=== PATIENT | male | born 1970 | race Caucasian/White ===

== ENCOUNTER 2021-02-28 17:39 | Emergency (ER) | payer MEDICAID ==
[~2021-02-28] VITALS: Ht 165.1 cm; Wt 77.0 kg
[2021-02-28] MEDS ORDERED: IBUPROFEN 600 MG TABLET PO ONE (20:30)
[2021-02-28 22:24] VITALS: BP 145/95
== END 2021-02-28 22:46 | disposition home or self-care (01) ==
LOC: EMS 17:40
DX: M79.601 Pain in right arm (principal)
CPT/HCPCS: 99283